=== PATIENT | male | born 1960 | race Caucasian/White ===

== ENCOUNTER → 2022-12-12 | Outpatient (CLI) | payer BC | END | disposition home or self-care (01) | LOC: RAH 08:00 | PROVIDERS: ATTEND Internal Medicine | DX: K80.50 Calculus of bile duct without cholangitis or cholecystitis without obstruction (principal); K76.0 Fatty (change of) liver, not elsewhere classified; R10.11 Right upper quadrant pain; M54.9 Dorsalgia, unspecified | CPT/HCPCS: 76700; 76857 ==

== ENCOUNTER 2023-01-24 00:29 | Emergency (ER) | payer BC ==
[~2023-01-24] VITALS: Ht 182.9 cm; Wt 117.9 kg
[2023-01-24] MEDS ORDERED: ACETAZOLAMIDE SODIUM 500 MG VIAL IV SCH (02:30)
[2023-01-24] MEDS ORDERED: TETRACAINE HCL 0.5% 4 ML OPHTH SOLN ONE (02:33)
[2023-01-24] MEDS ORDERED: TIMOLOL MALEATE 0.5% 5 ML BOTTLE OS SCH (04:30)
[2023-01-24] MEDS ORDERED: TETRACAINE HCL 0.5% 4 ML OPHTH SOLN OP SCH (04:30)
[2023-01-24] MEDS ORDERED: TIMOLOL MALEATE 0.5% 5 ML BOTTLE OD SCH (04:30)
[2023-01-24] MEDS ORDERED: TIMO1DRO9 OP (05:33)
[2023-01-24 05:45] VITALS: BP 126/76
== END 2023-01-24 05:51 | disposition home or self-care (01) ==
LOC: EDH 00:29
DX: H40.9 Unspecified glaucoma (principal); H54.62 Unqualified visual loss, left eye, normal vision right eye; F41.9 Anxiety disorder, unspecified; F32.A Depression, unspecified; Z88.8 Allergy status to other drugs, medicaments and biological substances
CPT/HCPCS: 99284; 96374; J1120